=== PATIENT | male | born 1945 | race Caucasian/White ===

== ENCOUNTER 2017-01-09 18:47 | Emergency (ER) | payer MEDICARE, OTHER ==
[2017-01-09] MEDS ORDERED: HYDROmorphone 1 MG/ML Syringe IM ONE (19:18)
--- NOTE | 2017-01-09 19:50 | EDM.PDOC ---
ED HPI GENERAL MEDICAL PROBLEM - General Chief Complaint: Genitourinary Problem Stated Complaint: bloody urine Time Seen by Provider: 01/09/17 18:50 Source of Information: Reports: Patient ([id number]) History Limitations: Reports: No Limitations - History of Present Illness INITIAL COMMENTS - FREE TEXT/NARRATIVE: Patient is a 71-year-old seen in the emergency room with chief complaint of blood in urine patient had 2 bloody urinations and now states that he is unable to urinate. Has had in the past history of prostate hypertrophy but had been doing well til today Onset: Today, Sudden Duration: Hour(s):, Getting Worse Location: Reports: Pelvis Quality: Reports: Ache, Pressure Severity: Moderate Improves with: Reports: None Worsens with: Reports: None Context: Reports: Sick Contact Associated Symptoms: Reports: Weakness - Related Data Allergies Allergy/AdvReac Type Severity Reaction Status Date / Time Penicillins Allergy Airway Verified 01/09/17 18:49 Tightness tetanus and diphtheria Allergy Edema Verified 01/09/17 18:49 toxoids Home Meds: Home Meds Aspirin [Ecotrin] 325 mg PO DAILY 01/09/17 [History] Atenolol [Atenolol] 50 mg PO DAILY 01/09/17 [History] Fish Oil/DHA/EPA [Fish Oil 1,200 MG] 1 tab PO DAILY 01/09/17 [History] Flaxseed Oil [Flaxseed] 1,000 mg PO DAILY 01/09/17 [History] Lisinopril/Hydrochlorothiazide [Lisinopril-Hctz 20-25 mg Tab] 1 tab PO DAILY 02/13 [History] metFORMIN [Glucophage XR] 500 mg PO DAILY 01/09/17 [History] ED ROS GENERAL - Review of Systems Review Of Systems: See Below Constitutional: Reports: No Symptoms, Diaphoresis (Secondary to pain) HEENT: Reports: No Symptoms Respiratory: Reports: No Symptoms Cardiovascular: Reports: No Symptoms Endocrine: Reports: No Symptoms GI/Abdominal: Reports: Abdominal Pain (Lower abdomen) : Reports: Hematuria Musculoskeletal: Reports: No Symptoms Skin: Reports: No Symptoms Neurological: Reports: No Symptoms Psychiatric: Reports: No Symptoms ED EXAM, RENAL/ - Physical Exam Exam: See Below Exam Limited By: No Limitations General Appearance: Alert, WD/WN, No Apparent Distress Ears: Normal External Exam, Normal Canal, Hearing Grossly Normal, Normal TMs Nose: Normal Inspection, Normal Mucosa, No Blood Throat/Mouth: Normal Inspection, Normal Lips, Normal Teeth, Normal Gums, Normal Oropharynx, Normal Voice, No Airway Compromise Head: Atraumatic, Normocephalic Neck: Normal Inspection, Supple, Non-Tender, Full Range of Motion Respiratory/Chest: No Respiratory Distress, Lungs Clear, Normal Breath Sounds, No Accessory Muscle Use, Chest Non-Tender Cardiovascular: Normal Peripheral Pulses, Regular Rate, Rhythm, No Edema, No Gallop, No JVD, No Murmur, No Rub GI/Abdominal: Normal Bowel Sounds, Soft, Non-Tender, No Organomegaly, No Distention, No Abnormal Bruit, No Mass (Male) Exam: Deferred Rectal (Males) Exam: Normal Exam, Normal Rectal Tone, Prostate Normal Back Exam: Normal Inspection, Full Range of Motion, NT Extremities: Normal Inspection, Normal Range of Motion, Non-Tender, Normal Capillary Refill, No Pedal Edema Neurological: Alert, Oriented, CN II-XII Intact, Normal Cognition, Normal Gait, Normal Reflexes, No Motor/Sensory Deficits Course - Vital Signs Last Recorded V/S: Last Vital Signs Temp 98.5 F 01/09/17 21:45 Pulse 49 L 01/09/17 21:45 Resp 16 01/09/17 21:45 BP 154/84 H 01/09/17 21:45 Pulse Ox 94 L 01/09/17 21:45 - Orders/Labs/Meds Orders: Active Orders 24 hr Category Date Time Status Bladder Irrigation [RC] BID Care 01/09/17 22:40 Active Insert Tinsley Catheter [Insert Urinary Catheter] [OM.PC] Care 01/09/17 19:30 Ordered Q24H Urinary Catheter Assessment [RC] ASDIRECTED Care 01/09/17 19:20 Active Saline Lock Insert [OM.PC] Routine Oth 01/09/17 20:34 Ordered Labs: Laboratory Tests 01/09/17 01/09/17 Range/Units 19:10 19:10 WBC 11.5 H (4.0-10.2) K/uL RBC 4.65 (4.33-5.41) M/uL Hgb 14.6 (13.1-16.8) g/dL Hct 42.0 (39.0-49.0) % MCV 90.3 (84.0-98.0) fL MCH 31.4 (28.2-33.3) pg MCHC 34.8 (31.7-36.0) g/dL RDW 13.5 (11.2-14.1) % Plt Count 518 H (150-350) K/uL Neut % (Auto) 69.6 (45.0-80.0) % Lymph % (Auto) 17.5 (10.0-50.0) % [place] % (Auto) 8.9 (2.0-14.0) % Eos % (Auto) 3.6 (0.0-5.0) % Baso % (Auto) 0.4 (0.0-2.0) % Neut # (Auto) 8.01 H (1.40-7.00) K/uL Lymph # (Auto) 2.01 (0.50-3.50) K/uL [place] # (Auto) 1.02 H (0.00-1.00) K/uL Eos # (Auto) 0.41 (0.00-0.50) K/uL Baso # (Auto) 0.05 (0.00-0.20) K/uL Sodium 132 L (136-145) mmol/L Potassium 4.2 (3.5-5.1) mmol/L Chloride 98 (98-107) mmol/L Carbon Dioxide 23.8 (21.0-32.0) mmol/L BUN 21 H (7-18) mg/dL Creatinine 0.92 (0.51-1.17) mg/dL Est Cr Clr Drug Dosing 73.84 mL/min Estimated GFR (MDRD) > 60 mL/min Glucose 287 H* (74-106) mg/dL Calcium 9.0 (8.5-10.1) mg/dL Meds: Medications Discontinued Medications Generic Name Dose Route Start Last Admin Trade Name Freq PRN Reason Stop Dose Admin Hydromorphone HCl 1 mg 01/09/17 19:18 01/09/17 19:24 Dilaudid IM 01/09/17 19:19 1 mg ONETIME ONE Administration Hydromorphone HCl 1 mg 01/09/17 20:29 01/09/17 22:00 Dilaudid IVPUSH 1 mg Q1H PRN Administration Pain Hydromorphone HCl Confirm 01/09/17 20:29 01/09/17 23:43 Dilaudid Administered 01/09/17 20:30 Not Given Dose 1 mg .ROUTE .STK-MED ONE Sodium Chloride 1,000 mls @ 150 mls/hr 01/09/17 21:02 01/09/17 21:30 Normal Saline IV 01/10/17 03:41 150 mls/hr ONETIME ONE Administration Ondansetron HCl 4 mg 01/09/17 21:02 01/09/17 22:03 Zofran IVPUSH 4 mg Q6H PRN Administration Nausea/Vomiting Promethazine HCl 25 mg 01/09/17 21:14 01/09/17 21:30 Phenergan IM 25 mg Q6H PRN Administration Nausea Sodium Chloride 10 ml 01/09/17 20:34 Saline Flush FLUSH ASDIRECTED PRN Keep Vein Open Departure - Departure Time of Disposition: 21:34 Disposition: DC/Tfer to [facility] 02 Clinical Impression: Hematuria Qualifiers: Hematuria type: unspecified type Qualified Code(s): R31.9 - Hematuria, unspecified - Discharge Information Referrals: Sheila Streeter PA [Primary Care Provider] - Forms: ED Department Discharge Care Plan Goals: 3 way tinsley placed. Patient will be transferred to [facility] for higher level care. Internal Medicine accepted this patient. - Problem List & Annotations (1) Hematuria SNOMED Code(s): 39157857 Code(s): R31.9 - HEMATURIA, UNSPECIFIED Status: Acute Annotation/Comment: : Patient unable to void a 3 way Tinsley catheter was inserted and irrigated bladder untill clear will treat his pain nausea and vomiting discuss with urology and agreed with care Qualifiers: Hematuria type: unspecified type Qualified Code(s): R31.9 - Hematuria, unspecified - Problem List Review Problem List Initiated/Reviewed/Updated: Yes - My Orders Last 24 Hours: My Active Orders 01/09/17 19:20 Urinary Catheter Assessment [RC] ASDIRECTED 01/09/17 19:30 Insert Tinsley Catheter [Insert Urinary Catheter] [OM.PC] Q24H 01/09/17 20:34 Saline Lock Insert [OM.PC] Routine 01/09/17 22:40 Bladder Irrigation [RC] BID - Assessment/Plan Last 24 Hours: My Active Orders 01/09/17 19:20 Urinary Catheter Assessment [RC] ASDIRECTED 01/09/17 19:30 Insert Tinsley Catheter [Insert Urinary Catheter] [OM.PC] Q24H 01/09/17 20:34 Saline Lock Insert [OM.PC] Routine 01/09/17 22:40 Bladder Irrigation [RC] BID Plan: [facility] at [place] accepted the patient for transfer. 3 way tinsley placed ( changed 3 times) prior to transfer due to clotting.
[2017-01-09] MEDS ORDERED: HYDROmorphone 1 MG/ML Syringe ONE (20:29)
[2017-01-09] MEDS: HYDROmorphone 1 MG/ML Syringe IVPUSH PRN ×2 (20:30→22:00)
[2017-01-09] MEDS ORDERED: Sodium Chloride 0.9% 10 ML Syringe FLUSH PRN (20:34)
[2017-01-09] MEDS ORDERED: Ondansetron 4 MG/2 ML SDV IVPUSH PRN (21:02)
[2017-01-09] MEDS ORDERED: Sodium Chloride 0.9% 1,000 ML IV ONE (21:02)
[2017-01-09] MEDS ORDERED: Promethazine 25 MG/ML SDV IM PRN (21:14)
[2017-01-09 21:19] LABS: CHLORIDE,CL 98 mmol/L (98-107); SODIUM,NA 132 mmol/L (136-145)
== END 2017-01-09 22:40 ==
LOC: LL.ED 18:47
DX: R31.9 Hematuria, unspecified (principal); Z88.0 Allergy status to penicillin; Z88.8 Allergy status to other drugs, medicaments and biological substances; Z79.899 Other long term (current) drug therapy
CPT/HCPCS: 36415; 51702; 80048; 85025; 96361; 96372; 96374; 96375; 96376; 99285; J1170; J2405; J2550; J7030

== ENCOUNTER 2017-09-02 16:39 | Emergency (ER) | payer MEDICARE, OTHER ==
--- NOTE | 2017-09-02 17:04 | EDM.PDOC ---
ED HPI GENERAL MEDICAL PROBLEM - General Chief Complaint: Upper Extremity Injury/Pain Stated Complaint: left pointer finger swelling/pain Time Seen by Provider: 09/02/17 16:55 Source of Information: Reports: Patient, Family (), Old Records ([facility] chart/EMR) History Limitations: Reports: No Limitations - History of Present Illness INITIAL COMMENTS - FREE TEXT/NARRATIVE: Patient drove himself to the emergency room via private automobile for evaluation of a one-week history of 5/10 left finger pain with increasing redness but no history of injury, insect bite, drainage, foreign body, etc. He has not had problems with gout in the past. The patient denies any chest pain/ pressure, heart flutter, dizziness, orthostasis, orthopnea, diaphoresis, paresthesias, recent decreased exercise tolerance, or any other anginal-type symptoms. No recent history of abdominal pain, heartburn, nausea, diarrhea, melena, gross hematochezia, or any food intolerance, including fatty foods, etc.. The patient also denies any recent fever, cough, wheezing, dyspnea, etc.. Onset: Gradual Duration: Week(s): (One week as above) Location: Reports: Upper Extremity, Left. Denies: Head, Face, Neck, Chest, Abdomen, Back, Upper Extremity, Right, Radiates to Quality: Reports: Ache Severity: Moderate Improves with: Reports: Rest Worsens with: Reports: Movement Context: Denies: Trauma Associated Symptoms: Reports: No Other Symptoms. Denies: Confusion, Chest Pain , Cough, Diaphoresis, Fever/Chills, Headaches, Loss of Appetite, Malaise, Nausea /Vomiting, Shortness of Breath, Syncope, Weakness Treatments CELL BIOLOGIST: Reports: Other (see below) (None) left pointer finger Pain Score (Numeric/FACES): 5 - Related Data Allergies Allergy/AdvReac Type Severity Reaction Status Date / Time adhesive Allergy Rash Verified 09/02/17 16:42 Penicillins Allergy Airway Verified 01/09/17 18:49 Tightness Sulfa (Sulfonamide Allergy Hives Verified 09/02/17 16:42 Antibiotics) tetanus and diphtheria Allergy Edema Verified 01/09/17 18:49 toxoids Home Meds: Home Meds Aspirin [Ecotrin] 325 mg PO DAILY 01/09/17 [History] Atenolol 50 mg PO DAILY 01/09/17 [History] Lisinopril/Hydrochlorothiazide [Lisinopril-Hctz 20-25 mg Tab] 1 tab PO DAILY 02/13 [History] metFORMIN [Glucophage XR] 500 mg PO DAILY 01/09/17 [History] Clindamycin HCl 150 mg PO TIDMEALS #30 capsule 09/02/17 [Rx] Escitalopram [Lexapro] 10 mg PO DAILY 09/02/17 [History] Triamcinolone Acetonide [Triamcinolone Acetonide 0.1% Crm] 1 applic TOP BID PRN 09/02/17 [History] Past Medical History HEENT History: Reports: Cataract, Hard of Hearing, Impaired Vision, Other (See Below). Denies: Allergic Rhinitis, Glaucoma, Macular Degeneration, Retinal Detachment Other HEENT History: The patient wears glasses. No diabetic retinopathy. Mild bilateral presbycusis with no hearing aide therapy. Cardiovascular History: Reports: Heart Murmur, High Cholesterol, Hypertension. Denies: Aneurysm, Arrhythmia, Blood Clots/VTE/DVT, CAD, Heart Failure, OK, PVD, Syncope Other Cardiovascular History: Aortic valve stenosis by history with aortic valve stenosis and mitral valve insufficiency by clinical exam which are closely followed by his technical services manager. Hyperlipidemia currently not treated with medications. Respiratory History: Reports: COPD, Intubation, Previous. Denies: Asthma, Bronchitis, Recurrent, Intubation, Difficult, PE, Pneumonia, Recurrent, Pneumothorax, Pulmonary Fibrosis, Sleep Apnea Gastrointestinal History: Reports: GERD. Denies: Celiac Disease, Cholelithiasis , Chronic Constipation, Chronic Diarrhea, Colon Polyp, Diverticulosis, Fecal Incontinence, Gastritis, GI Bleed, Hepatitis, Inflammatory Bowel Disease, Irritable Bowel Syndrome, Jaundice, Pancreatitis, PUD Genitourinary History: Reports: BPH, Retention, Urinary, Other (See Below). Denies: Acute Renal Failure, Chronic Renal Insuffiency, Diabetic Nephropathy, Renal Calculus, STD, Urinary Incontinence Musculoskeletal History: Reports: Arthritis, Back Pain, Chronic, Fracture, Neck Pain, Chronic, Osteoarthritis, Other (See Below). Denies: Amputation, Fibromyalgia, Gout, Osteoporosis, RA, SLE Other Musculoskeletal History: Bilateral big toe fractures in the 1960s with no surgery required. Neurological History: Reports: CVA, TIA, Other (See Below). Denies: Alzheimers Disease, Cerebral Aneurysms, Concussion, Headaches, Chronic, Head Trauma, Migraines, MS, Neuropathy, Diabetic, Neuropathy, Peripheral, Parkinson's, Seizure Other Neuro History: Recurrent TIAs 2 between 1995 and 1996 with no residual defects. The patient denies previous CVA in 1995 despite our previous medical records. Psychiatric History: Reports: Anxiety, Depression. Denies: Abuse, Victim of, ADD, ADHD, Addiction, Psych Hospitalization(s), PTSD, Suicide Attempt, Suicidal Ideation Endocrine/Metabolic History: Reports: Diabetes, Type II, Other (See Below). Denies: Diabetes, Type I, Diabetes Mellitus, Type 3c, Hypothyroidism, IDDM, Obesity/BMI 30+ Other Endocrine/Metabolic History: Hyponatremia. Hematologic History: Reports: None. Denies: Anemia, Blood Transfusion(s), Iron Deficiency Immunologic History: Reports: None. Denies: AIDS, HIV, SLE Oncologic (Cancer) History: Reports: Bladder, Prostate, Other (See Below). Denies: Colon, Hodgkin's Lymphoma, Lymphoma, Malignant Melanoma, Non-Hodgkin's Lymphoma, Squamous Cell Carcinoma Other Oncologic History: Prostate cancer in 2006 requiring surgery as below. Unknown type of skin cancer with excision as below. Bladder bladder cancer excized in June 2017 as below. Dermatologic History: Reports: Eczema. Denies: Psoriasis - Infectious Disease History Infectious Disease History: Reports: Chicken Pox, Measles, Pertussis (Whooping Cough). Denies: C-Difficile, Meningitis, Mononucleosis, MRSA, Mumps, Rheumatic Fever, Rubella, Shingles, TB, VRE - Past Surgical History Head Surgeries/Procedures: Reports: None HEENT Surgical History: Reports: Cataract Surgery, Oral Surgery, Other (See Below). Denies: Adenoidectomy, Eye Surgery, Laser Surgery, LASIK, Myringotomy w Tube(s), Naso-Sinus Surgery, Tonsillectomy Other HEENT Surgeries/Procedures: Bilateral cataract surgery in 2005. Excision of one wisdom tooth in distant past. Cardiovascular Surgical History: Reports: None. Denies: Varicose Respiratory Surgical History: Reports: None. Denies: Thoracentesis GI Surgical History: Reports: None. Denies: Appendectomy, Cholecystectomy, Colonoscopy, EGD, Hernia, Abdominal, Hernia, Inguinal, Hernia Repair/Other Male Surgical History: Reports: Circumcision, Prostate Biopsy, Prostatectomy , TURBT-Transurethral Resection of Bladder Tumor, TURP-Transurethral Resection of Prostate, Other (See Below). Denies: Vasectomy Other Male Surgeries/Procedures: History of complete prostatectomy secondary to prostate cancer in 2006 with no chemotherapy, radiation therapy, etc.. Placement of suprapubic urinary catheter in December 2016 secondary to severe urinary retention with subsequent removal. TURBT of bladder cancer in June 2017. Circumcision as an infant. Endocrine Surgical History: Reports: None Neurological Surgical History: Reports: None. Denies: C-Spine, Discectomy, Laminectomy, Lumbar Spine, Sacral Spine, Spinal Fusion, Thoracic Spine, Vertebroplasty Musculoskeletal Surgical History: Reports: ORIF, Other (See Below). Denies: Arthroscopic Procedure, Carpal Tunnel, Ganglion Cyst, Joint Replacement, Shoulder Surgery Other Musculoskeletal Surgeries/Procedures:: Bilateral hallux valgus repair including pin placement in 2016. Oncologic Surgical History: Reports: None Dermatological Surgical History: Reports: Skin Biopsy, Other (See Below) Other Dermatological Surgeries/Procedures: Excision of unknown type of skin cancer from the left cheek in 2006. Social & Family History - Tobacco Use Smoking Status *Q: Current Every Day Smoker Tobacco Use Within Last Twelve Months: Cigarettes Years of Tobacco use: 58 Packs/Tins Daily: 1 Packs/Tins Daily Comment: Started smoking at age 13 with maximum use of 3 packs per day. Used Tobacco, but Quit: No Smoking Cessation Information Provided To Patient: Yes Second Hand Smoke Exposure: Yes Source of Second Hand Smoke Exposure: smokes Second Hand Smoke Education Provided: Yes - Caffeine Use Caffeine Use: Reports: Coffee (10 cups per day), Soda (2 sodas per day). Denies : Energy Drinks, Tea - Alcohol Use Alcohol Use History: Yes Days Per Week of Alcohol Use: 7 Number of Drinks Per Day: 4 Number of Drinks Per Day Comment: Usually beer. No previous DWIs, problems with alcohol abuse, etc. Total Drinks Per Week: 28 Alcohol Use in Last Twelve Months: Yes - Recreational Drug Use Recreational Drug Use: No Drug Use in Last 12 Months: No Recreational Drug Type: Denies: Amphetamines (Speed), Cocaine, Heroin, LSD (Acid ), Marijuana/Hashish, Methamphetamine, Morphine, Oxycodone - Living Situation & Occupation Living situation: Reports: , with Family () Occupation: Retired Review of Systems - Review of Systems Review Of Systems: ROS reveals no pertinent complaints other than HPI. ED EXAM, GENERAL - Physical Exam Exam: See Below Exam Limited By: No Limitations General Appearance: Alert, WD/WN, No Apparent Distress Head: Atraumatic, Normocephalic. No: Facial Swelling, Facial Tenderness, Sinus Tenderness Neck: Supple, Non-Tender, Full Range of Motion, Carotid Bruit (Mild to Moderate bilateral carotid bruits versus transmitted heart sounds). No: Lymphadenopathy (L), Lymphadenopathy (R), Thyromegaly Respiratory/Chest: No Respiratory Distress, Lungs Clear, Normal Breath Sounds, No Accessory Muscle Use, Chest Non-Tender. No: Pleural Rub, Retractions Cardiovascular: Normal Peripheral Pulses, No Edema, No Gallop, No JVD, No Rub, Bradycardia (Mild to moderate with regular rhythm), Systolic Murmur (12/6 JT of the aortic and mitral valves). No: Gallop/S3, Gallop/S4, Friction Rub GI/Abdominal: Normal Bowel Sounds, Soft, Non-Tender, No Organomegaly, No Distention, No Abnormal Bruit, No Mass. No: Pelvis Stable, Guarding (Male) Exam: Deferred Rectal (Males) Exam: Deferred Back Exam: Normal Inspection, Full Range of Motion. No: CVA Tenderness (L), CVA Tenderness (R), Muscle Spasm Extremities: Normal Range of Motion, No Pedal Edema, Normal Capillary Refill, Increased Warmth (Mild increased localized warmth with +1 erythema over the proximal portion of the middle phalanx of digit #2 of the left hand with no lymphangitis, drainage, etc. No evidence of foreign body). No: Joint Swelling, Branden's Sign Neurological: Alert, Oriented, CN II-XII Intact, Normal Cognition, Normal Gait, No Motor/Sensory Deficits Psychiatric: Normal Affect, Normal Mood Skin Exam: Erythema (As above). No: Diaphoretic, Lymphangitis, Wound/Incision Lymphatic: No Adenopathy Course - Vital Signs Last Recorded V/S: Last Vital Signs Temp 36.8 C 09/02/17 16:59 Pulse 52 L 09/02/17 16:59 Resp 18 09/02/17 16:59 BP 137/55 L 09/02/17 16:59 Pulse Ox 98 09/02/17 16:59 Vital Signs - 24 hr 09/02/17 16:59 Temperature [ 36.8 C Oral] Pulse, 52 L Peripheral [ Right Pulse Oximetry] Respiratory 18 Rate Blood Pressure 137/55 L [Right Upper Arm] O2 Sat by Pulse 98 Oximetry - Orders/Labs/Meds Orders: Active Orders 24 hr Category Date Time Status Obtain Past Medical Record [OM.PC] Routine Oth 09/02/17 17:03 Active Labs: Laboratory Tests 09/02/17 09/02/17 09/02/17 Range/Units 17:10 17:10 17:10 WBC 9.2 (4.0-10.2) K/uL RBC 5.00 (4.33-5.41) M/uL Hgb 15.5 (13.1-16.8) g/dL Hct 44.9 (39.0-49.0) % MCV 89.8 (84.0-98.0) fL MCH 31.0 (28.2-33.3) pg MCHC 34.5 (31.7-36.0) g/dL RDW 13.9 (11.2-14.1) % Plt Count 413 H D (150-350) K/uL Neut % (Auto) 69.1 (45.0-80.0) % Lymph % (Auto) 15.3 (10.0-50.0) % [place] % (Auto) 8.1 (2.0-14.0) % Eos % (Auto) 6.9 H (0.0-5.0) % Baso % (Auto) 0.6 (0.0-2.0) % Neut # (Auto) 6.38 (1.40-7.00) K/uL Lymph # (Auto) 1.41 (0.50-3.50) K/uL [place] # (Auto) 0.75 (0.00-1.00) K/uL Eos # (Auto) 0.64 H (0.00-0.50) K/uL Baso # (Auto) 0.06 (0.00-0.20) K/uL Sodium 134 L (136-145) mmol/L Potassium 4.5 (3.5-5.1) mmol/L Chloride 99 (98-107) mmol/L Carbon Dioxide 26.8 (21.0-32.0) mmol/L BUN 22 H (7-18) mg/dL Creatinine 1.10 (0.51-1.17) mg/dL Est Cr Clr Drug Dosing 61.76 mL/min Estimated GFR (MDRD) > 60 mL/min Glucose 241 H (74-106) mg/dL Lactic Acid (0.4-2.0) mmol/L Uric Acid 6.3 (2.6-7.2) mg/dL Calcium 9.3 (8.5-10.1) mg/dL Total Bilirubin 0.4 (0.2-1.0) mg/dL AST 12 L (15-37) U/L ALT 28 (12-78) U/L Alkaline Phosphatase 75 (46-116) IU/L Total Protein 7.2 (6.4-8.2) g/dL Albumin 3.4 (3.4-5.0) g/dL 09/02/17 Range/Units 17:10 WBC (4.0-10.2) K/uL RBC (4.33-5.41) M/uL Hgb (13.1-16.8) g/dL Hct (39.0-49.0) % MCV (84.0-98.0) fL MCH (28.2-33.3) pg MCHC (31.7-36.0) g/dL RDW (11.2-14.1) % Plt Count (150-350) K/uL Neut % (Auto) (45.0-80.0) % Lymph % (Auto) (10.0-50.0) % [place] % (Auto) (2.0-14.0) % Eos % (Auto) (0.0-5.0) % Baso % (Auto) (0.0-2.0) % Neut # (Auto) (1.40-7.00) K/uL Lymph # (Auto) (0.50-3.50) K/uL [place] # (Auto) (0.00-1.00) K/uL Eos # (Auto) (0.00-0.50) K/uL Baso # (Auto) (0.00-0.20) K/uL Sodium (136-145) mmol/L Potassium (3.5-5.1) mmol/L Chloride (98-107) mmol/L Carbon Dioxide (21.0-32.0) mmol/L BUN (7-18) mg/dL Creatinine (0.51-1.17) mg/dL Est Cr Clr Drug Dosing mL/min Estimated GFR (MDRD) mL/min Glucose (74-106) mg/dL Lactic Acid 1.4 (0.4-2.0) mmol/L Uric Acid (2.6-7.2) mg/dL Calcium (8.5-10.1) mg/dL Total Bilirubin (0.2-1.0) mg/dL AST (15-37) U/L ALT (12-78) U/L Alkaline Phosphatase (46-116) IU/L Total Protein (6.4-8.2) g/dL Albumin (3.4-5.0) g/dL Meds: Medications Discontinued Medications Generic Name Dose Route Start Last Admin Trade Name Freq PRN Reason Stop Dose Admin Clindamycin HCl 150 mg 09/02/17 18:02 09/02/17 18:23 Cleocin PO 09/02/17 18:03 150 mg ONETIME ONE Administration - Radiology Interpretation Free Text/Narrative:: None Departure - Departure Time of Disposition: 18:30 Disposition: Home, Self-Care 01 Condition: Good Clinical Impression: Heart murmur, Tobacco abuse counseling Cellulitis Qualifiers: Site of cellulitis: extremity Site of cellulitis of extremity: finger Laterality: left Qualified Code(s): L03.012 - Cellulitis of left finger Osteoarthritis Qualifiers: Osteoarthritis location: multiple joints Osteoarthritis type: primary Qualified Code(s): M15.0 - Primary generalized (osteo)arthritis Diabetes mellitus Qualifiers: Diabetes mellitus type: type 2 Diabetes mellitus emt intermediate insulin use: without emt intermediate use Diabetes mellitus complication status: without complication Qualified Code(s): E11.9 - Type 2 diabetes mellitus without complications COPD (chronic obstructive pulmonary disease) Qualifiers: COPD type: emphysema Emphysema type: panlobular Qualified Code(s): J43.1 - Panlobular emphysema Hypertension Qualifiers: Hypertension type: essential hypertension Qualified Code(s): I10 - Essential ( primary) hypertension Hyperlipidemia Qualifiers: Hyperlipidemia type: unspecified Qualified Code(s): E78.5 - Hyperlipidemia, unspecified - Discharge Information Prescriptions: Clindamycin HCl 150 mg PO TIDMEALS #30 capsule Instructions: Cellulitis, Adult, [id number] Referrals: Suzy Morillo PA-C [Primary Care Provider] - Forms: ED Department Discharge Additional Instructions: 1. Follow up with your regular provider in 10-14 days as needed, if symptoms persist. Bring these discharge instructions with you to that visit.. 2. Antibacterial soap wash/soak with subsequent antibacterial dressing such as Neosporin, etc. as directed 2 times per day until the wound site completely heals. Keep the area clean and dry with activity restrictions as discussed. 3. Tylenol 650 mg by mouth every 4 hours and/or OTC ibuprofen 2-3 tabs by mouth every 6 hours with food as directed./needed. 4. Stop all tobacco use MILAGROS as directed/per provided information and consider contacting [employer]uit LIne, etc.. 5. Immediately after this visit verify that your cellular telephone's voicemail has been activated and is empty. Also verify that your home telephone 's answering machine is operating properly and has space to receive messages. Note that it is sometimes necessary for us to be able to contact you at a later date to discuss your medical care. 6. Consider updating your preventative health care, including colonoscopy MILAGROS as discussed - Problem List & Annotations (1) Cellulitis SNOMED Code(s): 019681453 Code(s): L03.90 - CELLULITIS, UNSPECIFIED Status: Acute Priority: High Onset Date: ~08/26/17 Annotation/Comment:: Initial dose of clindamycin given in the emergency room. Wound care discussed. Follow-up with regular provider when necessary. Qualifiers: Site of cellulitis: extremity Site of cellulitis of extremity: finger Laterality: left Qualified Code(s): L03.012 - Cellulitis of left finger (2) COPD (chronic obstructive pulmonary disease) SNOMED Code(s): 83408845 Code(s): J44.9 - CHRONIC OBSTRUCTIVE PULMONARY DISEASE, UNSPECIFIED Status : Chronic Priority: Medium Annotation/Comment:: Stable by history with no recent fever or bronchitic type symptoms. No current medical therapy. Consider PFTs by his regular provider. Smoking cessation strongly encouraged as below. Qualifiers: COPD type: emphysema Emphysema type: panlobular Qualified Code(s): J43.1 - Panlobular emphysema (3) Diabetes mellitus SNOMED Code(s): 90671396 Code(s): E11.9 - TYPE 2 DIABETES MELLITUS WITHOUT COMPLICATIONS Status: Chronic Priority: Medium Annotation/Comment:: Elevated blood sugar today possibly secondary to current infection. Continue to observe closely by his regular provider. Qualifiers: Diabetes mellitus type: type 2 Diabetes mellitus emt intermediate insulin use: without [facility] use Diabetes mellitus complication status: without complication Qualified Code(s): E11.9 - Type 2 diabetes mellitus without complications (4) Heart murmur SNOMED Code(s): 48985214 Code(s): R01.1 - CARDIAC MURMUR, UNSPECIFIED Status: Chronic Priority: Medium Annotation/Comment:: Aortic valve stenosis and mitral valve insufficiency by clinical exam. Patient has a follow-up appointment scheduled with his technical services manager next week. No chest pain or anginal type symptoms. (5) Hyperlipidemia SNOMED Code(s): 45121070 Code(s): E78.5 - HYPERLIPIDEMIA, UNSPECIFIED Status: Chronic Priority: Medium Annotation/Comment:: Not currently under medical therapy. Strongly consider statin therapy especially in light of his diabetes, etc. Qualifiers: Hyperlipidemia type: unspecified Qualified Code(s): E78.5 - Hyperlipidemia , unspecified (6) Hypertension SNOMED Code(s): 80532271 Code(s): I10 - ESSENTIAL (PRIMARY) HYPERTENSION Status: Chronic Priority : Medium Annotation/Comment:: Under good control in the emergency room. She is already on an DEVIN inhibitor. Note bradycardia secondary to his atenolol. Continue to observe closely by his regular provider. Qualifiers: Hypertension type: essential hypertension Qualified Code(s): I10 - Essential (primary) hypertension (7) Osteoarthritis SNOMED Code(s): 832536093 Code(s): M19.90 - UNSPECIFIED OSTEOARTHRITIS, UNSPECIFIED SITE Status: Chronic Priority: Medium Annotation/Comment:: Stable by history with normal uric acid level today. Qualifiers: Osteoarthritis location: multiple joints Osteoarthritis type: primary Qualified Code(s): M15.0 - Primary generalized (osteo)arthritis (8) Tobacco abuse counseling SNOMED Code(s): 663522085, 997805954, 252391645 Code(s): Z71.6 - TOBACCO ABUSE COUNSELING Status: Chronic Priority: Medium Annotation/Comment:: Patient and his were strongly encouraged to discontinue smoking MILAGROS, although they were not very interested in doing this. - Problem List Review Problem List Initiated/Reviewed/Updated: Yes - My Orders Last 24 Hours: My Active Orders 09/02/17 17:03 Obtain Past Medical Record [OM.PC] Routine - Assessment/Plan Last 24 Hours: My Active Orders 09/02/17 17:03 Obtain Past Medical Record [OM.PC] Routine Assessment:: As above Plan: As above. Extensive precautions were given to the patient, who is in agreement with the treatment plan. See Patient Instructions for further treatment and plan.
[2017-09-02 17:34] LABS: CHLORIDE,CL 99 mmol/L (98-107); SODIUM,NA 134 mmol/L (136-145)
[2017-09-02] MEDS: Clindamycin HCl 150 MG Cap PO ONE (18:23)
== END 2017-09-02 18:30 | disposition home or self-care (01) ==
LOC: LL.ED 16:39
DX: L03.012 Cellulitis of left finger (principal); E78.00 Pure hypercholesterolemia, unspecified; I10 Essential (primary) hypertension; K21.9 Gastro-esophageal reflux disease without esophagitis; E11.9 Type 2 diabetes mellitus without complications; F17.210 Nicotine dependence, cigarettes, uncomplicated; M15.0 Primary generalized (osteo)arthritis; J43.1 Panlobular emphysema; E78.5 Hyperlipidemia, unspecified; Z91.048 Other nonmedicinal substance allergy status; Z88.0 Allergy status to penicillin; Z79.899 Other long term (current) drug therapy; Z79.82 Long term (current) use of aspirin; Z79.84 Long term (current) use of oral hypoglycemic drugs; Z88.2 Allergy status to sulfonamides; Z88.7 Allergy status to serum and vaccine; Z86.73 Personal history of transient ischemic attack (TIA), and cerebral infarction without residual deficits; Z71.6 Tobacco abuse counseling
CPT/HCPCS: 36415; 80053; 83605; 84550; 85025; 99284; A9270-GY

== ENCOUNTER 2018-10-26 11:31 | Day surgery (SDC) | payer MEDICARE, OTHER ==
--- OUTSIDE RECORDS SUMMARY | 2018-10-24 09:20 | XMSREPORT | Referral Summary ---
:1945 Author Organization [facility] Address [address] [place] [address] [address] [place] [address] Care Team Providers Name Role Phone Suzy Morillo PA-C Attributed Provider Reason for Referral Transitions of Care (Routine) Status Reason Specialty Diagnoses / Referred By Referred To Procedures Contact Contact New Request Patient Diagnoses Positive colorectal cancer screening using Cologuard test Suzy Morillo, Health , [facility] MADELEINE Rector, [address] [facility] [address] [place] [id number] Phone: Fax: Encounter Details Date Type Department Care Team Description 10/19/2018 Telephone [facility] Suzy Morillo PA-C CLINIC [address] [place] [address] [place] [address] Allergies Active Allergy Reactions Severity Noted Date Comments Povidone Iodine Rash High 03/18/2017 Latex Rash 05/22/2012 Penicillin Anaphylaxis (High) High 05/22/2012 Throat swelling shut / trouble breathing Sulfa Drugs Hives (High) High 01/13/2018 Tetanus Toxoids Other (Specify in 05/22/2012 Arm swelled up Comments) documented as of this encounter (statuses as of 10/19/2018) Medications Medication Sig Dispensed Refills Start Date End Date Status aspirin 325 mg tablet Take 325 mg by 0 Active mouth 1 time per day TRUEPLUS LANCETS 28G MISC Inject 1 Strip 100 each 3 11/26/2014 Active as directed 1 time per day. Test blood sugar once daily DX: E11.9 blood glucose test strip Test blood sugar 100 each 3 11/26/2014 Active (GLUCOCARD VITAL TEST) once daily DX: E11.9 mupirocin (BACTROBAN) 2 % [The details of 22 g 2 01/07/2016 Active ointmentIndications: the medication Basal cell carcinoma are not available because there are pending changes by a home health clinician.] clotrimazole [The details of 60 g 2 12/16/2016 Active (LOTRIMIN-AF) 1 % the medication creamIndications: are not Irritant dermatitis available because there are pending changes by a home health clinician.] ketoconazole (NIZORAL) 2 Apply 1 60 g 4 08/11/2018 Active % creamIndications: application to Intertrigo affected skin fold areas twice daily for 2-3 weeks, then discontinue use. Can repeat during flares. glipiZIDE (GLUCOTROL) 10 Take 1 tablet 90 tablet 0 09/28/2018 Active mg tabletIndications: (10 mg) by mouth Type 2 diabetes mellitus 1 time a day with microalbuminuria, with breakfast without long-term current use of insulin (HCC) atenolol (TENORMIN) 50 mg Take 1 tablet 90 tablet 3 09/28/2018 Active tabletIndications: (50 mg) by mouth Essential hypertension 1 time per day metFORMIN (GLUCOPHAGE) Take 1 tablet 90 tablet 0 09/28/2018 Active 850 MG tabletIndications: (850 mg) by Type 2 diabetes mellitus mouth 1 time per with microalbuminuria, day without long-term current use of insulin (HCC) lisinopril-hydroCHLOROthi Take 1 tablet by 90 tablet 0 09/28/2018 Active azide (PRINZIDE, mouth 1 time per ZESTORETIC) 20-25 mg day tabletIndications: Essential hypertension rosuvastatin (CRESTOR) 10 Take 0.5 tablets 90 tablet 0 09/28/2018 Active mg tabletIndications: (5 mg) by mouth 9 Pure hypercholesterolemia every night at bedtime for 7 days, THEN 1 tablet (10 mg) every night at bedtime. escitalopram (LEXAPRO) 10 Take 1 tablet 90 tablet 0 09/28/2018 Active mg tabletIndications: (10 mg) by mouth Anxiety and depression 1 time per day hydrOXYzine (ATARAX) 25 Take 1 tablet 30 tablet 0 09/28/2018 Active mg tabletIndications: (25 mg) by mouth Hives of unknown origin Every 12 hours as needed for itching triamcinolone acetonide APPLY TO 80 g 1 10/10/2018 Active (KENALOG,ARISTOCORT) 0.1 AFFECTED AREAS % creamIndications: TWICE A DAY Venous stasis dermatitis NEEDED FOR of both lower RASH,LIMIT TO extremities, Hives of LESS THAN 3 unknown origin WEEKS OF CONTINUOUS USE,AVOID USE ON FACE,UNDERARMS AND GROIN documented as of this encounter (statuses as of 10/19/2018) Active Problems Problem Noted Date Anxiety and depression 09/28/2018 Hives of unknown origin 09/28/2018 Nocturia 07/21/2018 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 Renal cyst 01/26/2017 Hematuria 01/10/2017 Urethral injury 01/10/2017 Aortic stenosis, mild 07/18/2015 Mild aortic regurgitation 07/18/2015 Pre-ulcerative corn or callous 05/29/2013 Personal history of malignant neoplasm of prostate 12/11/2007 Prostate cancer 02/28/2006 Essential hypertension 05/07/2002 Contact dermatitis and other eczema, due to unspecified cause Tobacco use disorder Obesity Pure hypercholesterolemia Type 2 diabetes mellitus without complication documented as of this encounter (statuses as of 10/19/2018) Social History Tobacco Use Types Packs/Day Years Used Date Current Every Day Smoker Cigarettes 1 Smokeless Tobacco: Never Used Alcohol Use Drinks/Week oz/Week Comments Yes 2-3 Cans of beer 1.2 - 1.8 beer Sex Assigned at Date Recorded Not on file Job Start Date Occupation Industry Not on file Not on file Not on file Travel History Travel Start Travel End No recent travel history available. documented as of this encounter Functional Status Functional Status Response Date of Assessment Is the person deaf or does he/she have serious difficulty No 03/16/2017 hearing? Is this person blind or does he/she have difficulty No 03/16/2017 seeing even when wearing glasses? Do you have difficulty with walking, balance, climbing No 03/18/2017 stairs, or had a fall in the last 3 months? Does the patient have difficulty dressing or bathing? No 03/16/2017 Because of a physical, mental, or emotional condition; No 03/16/2017 does this person have difficulty doing errands alone such as visiting a doctor's office or shopping? Cognitive Status Response Date of Assessment Because of a physical, mental, or emotional condition; No 03/16/2017 does this person have serious difficulty concentrating, remembering, or making decisions? documented as of this encounter Plan of Treatment Date Type Specialty Care Team Description 01/26/2019 Office Visit Urology Gil Perdue MD [address] [place] [address] [phone] 08/16/2019 Office Visit Dermatology Linda Menon PA [address] [address] [phone] Name Priority Associated Diagnoses Order Schedule CLINIC REFERRAL ENDOSCOPY Routine Positive colorectal cancer Ordered: 2018 NON ONE CHART screening using Cologuard test documented as of this encounter Goals Goal Patient Goal Associated Recent Patient-Stated? Author Type Problems Progress HGB A1C < Result Component 8.5 No Suzy Morillo 7.5 (09/26/2018 PMADELEINE 1:07 PM CDT) documented as of this encounter Implants Implanted Type Area Cloth Measurer Device Shelf Model / Identifier Expiration Serial / Date Lot Screw Antwan Slftp Hex Ti 2.7x16 N 402.816 Ea - [id number] Ortho Left: J&J DEPUY 402.816 / Implanted: Qty: 1 on 01/01/2015 by Adam Ivy DPM Other TOE SYNTHES / Screw Antwan Slftp Hex Ti 2.7x16 N 402.816 Ea - [id number] Ortho Right: J&J DEPUY 402.816 / Implanted: Qty: 1 on 01/01/2015 by Adam Ivy DPM Other TOE SYNTHES / Kwire Smth 054 4 N [id number] Ea - [id number] Ortho Left: KOMET [id number] / Implanted: Qty: 1 on 01/01/2015 by Adam Ivy DPM Other TOE / Kwire Smth 054 4 N [id number] Ea - [id number] Ortho Right: [address] 24-54 / Implanted: Qty: 1 on 01/01/2015 by Adam Ivy DPM Other TOE / Screw Antwan Slftp Hex Ti 2.7x12 N 402.812 Ea - [id number] Ortho Left: J&J DEPUY 402.812 / Implanted: Qty: 1 on 01/01/2015 by Adam Ivy DPM Other TOE SYNTHES / Screw Antwan Slftp Hex Ti 2.7x12 N 402.812 Ea - [id number] Ortho Right: J&J DEPUY 402.812 / Implanted: Qty: 1 on 01/01/2015 by Adam Ivy DPM Other TOE SYNTHES / Screw Antwan Slftp Hex Ti 2.7x12 N 402.812 Ea - [id number] Ortho Left: J&J DEPUY 402.812 / Implanted: Qty: 1 on 01/14/2016 by Adam Ivy DPM Other TOE SYNTHES / Kwire Dbl Troc Smth 0.054x4 N [id number] Ea - [id number] Ortho Left: [place] [id number] / Implanted: Qty: 1 on 01/14/2016 by Adam Ivy DPM Other TOE MEDICAL / Kwire Dbl Troc Smth 0.054x4 N [id number] Ea - [id number] Ortho Left: [place] [address]54 / Implanted: Qty: 1 on 01/14/2016 by Adam Ivy DPM Other TOE MEDICAL / Kwire Dbl Troc Smth 0.054x4 N [id number] Ea - [id number] Ortho Left: [place] [id number] / Implanted: Qty: 1 on 01/14/2016 by Adam Ivy DPM Other TOE MEDICAL / Screw Antwan Slftp Hex Ti 2.7x12 N 402.812 Ea - [id number] Ortho Left: J&J DEPUY 402.812 / Implanted: Qty: 1 on 01/14/2016 by Adam Ivy DPM Other TOE SYNTHES / documented as of this encounter Visit Diagnoses Diagnosis Positive colorectal cancer screening using Cologuard test - Primary documented in this encounter
[~2018-10-26 11:31] MED LIST: Propofol 200 MG/20 ML SDV ONE
[2018-10-26] MEDS ORDERED: Sodium Chloride 0.9% 10 ML Syringe FLUSH PRN (11:45)
[2018-10-26] MEDS: Lactated Ringers 1,000 ML IV SCH (12:21)
[2018-10-26] MEDS ORDERED: Propofol 200 MG/20 ML SDV ONE ×4 (12:31→13:52)
--- NOTE | 2018-10-26 12:33 | PCM.PN ---
- General Info Date of Service: 10/26/18 - Review of Systems Systems Review Comment:: 72-year-old male referred for his initial screening colonoscopy. He is medically stable to proceed today. His recent history and physical is reviewed and no significant changes are noted. I discussed the proposed colonoscopy with the patient. Risks such as but not limited to bleeding and GI injury reviewed. He agrees to proceed. - Patient Data Vitals - Most Recent: Last Vital Signs Temp 97.7 F 10/26/18 11:55 Pulse 91 10/26/18 11:55 Resp 20 10/26/18 11:55 BP 155/71 H 10/26/18 11:55 Pulse Ox 98 10/26/18 11:55 Weight - Most Recent: 101.605 kg Lab Results Last 24 Hours: Laboratory Results - last 24 hr 10/26/18 Range/Units 12:19 POC Glucose 208 H (65-110) mg/dl Med Orders - Current: Current Medications Lactated Ringer's (Ringers, Lactated) 1,000 mls @ 125 mls/hr IV ASDIRECTED DILLAN Last Admin: 10/26/18 12:21 Dose: 125 mls/hr Sodium Chloride (Saline Flush) 10 ml FLUSH ASDIRECTED PRN PRN Reason: Keep Vein Open Discontinued Medications Propofol (Diprivan 20 Ml) Confirm Administered Dose 200 mg .ROUTE .STK-MED ONE Stop: 10/26/18 08:34 - Problem List Review Problem List Initiated/Reviewed/Updated: Yes - My Orders Last 24 Hours: My Active Orders 10/26/18 11:45 Patient Status [ADT] Routine Blood Glucose Check, Bedside [RC] ONETIME Peripheral IV Care [RC] . DIRECTED Verify Patient Consent Obtain [RC] ASDIRECTED Lactated Ringers [Ringers, Lactated] 1,000 ml IV ASDIRECTED Sodium Chloride 0.9% [Saline Flush] 10 ml FLUSH ASDIRECTED PRN Peripheral IV Insertion Adult [OM.PC] Routine - Assessment Assessment:: colon cancer screening - Plan Plan:: colonoscopy
--- NOTE | 2018-10-26 13:52 | PCM.OPNOTE ---
- General Post-Op/Procedure Note Date of Surgery/Procedure: 10/26/18 Operative Procedure(s): Colonoscopy with Polypectomy Findings: Multiple large colon polyps Pre Op Diagnosis: Colon Cancer Screening Post-Op Diagnosis: Multiple Colon Polyps Anesthesia Technique: MAC Primary Surgeon: Preet Harris Pathology: Multiple colon polyps EBL in mLs: 0 Complications: None Condition: Good
--- NOTE | 2018-10-26 20:28 | OR ---
Date of Procedure: 10/26/2018 PREOPERATIVE DIAGNOSIS: Colon cancer screening. POSTOPERATIVE DIAGNOSIS: Multiple colon polyps. OPERATIONS PERFORMED: Colonoscopy with polypectomy. INDICATIONS FOR SURGERY: This 72-year-old male was referred for his initial colon cancer screening colonoscopy. FINDINGS: Multiple polyps were noted on today's exam. The polyps visualized vary in size from 5 mm to 3 cm. Several polyps are large, some are sessile in configuration, and some pedunculated. Polyps were removed from multiple areas in the colon. In the mid transverse colon, a large polyp was noted with a wide base attachment to the colon wall. It was felt that using standard snare technique would have significant risk for colon perforation, so it was felt that removal of this polyp would be best performed by a director outcomes using advanced polypectomy techniques. There was another smaller pedunculated polyp near this area which was also left in place. Additional small polyps were noted during the exam, but because of the multiple large polyps, some of the small polyps were not removed during this exam. The polyps removed today were from the rectum, in 4 locations in the sigmoid colon, the 15, 18, 25, and 30 cm levels, at the hepatic flexure and the transverse colon and at the splenic flexure. The largest polyps were in the Sigmoid and hepatic flexure regions.Other than the colon polyps, the colon appeared normal. DESCRIPTION OF PROCEDURE: The patient was taken to the operating room. He was given intravenous sedation, and with him in the left lateral decubitus position, digital rectal exam was performed showing no rectal masses. The Olympus colonoscope was inserted into the rectum and retroflexed examination of the rectal canal was performed. The scope was then carefully advanced under direct visualization into the colon. During insertion of the scope, multiple polyps were identified. As these polyps were seen, they were removed with a cautery snare and retrieved. The majority of the polyps was able to be suctioned into the polyp trap, but some of the larger polyps had to be held on the end of the scope with suction and retrieved by withdrawing the scope and the polyp. With careful advancement of the scope and with the assistance of hand pressure, the cecum was able to be reached. After examining the cecum, the scope was slowly withdrawn, and during withdrawal of the scope, additional polyps were seen and removed as they were encountered. In the transverse colon, a larger broad-based polyp was identified. There was a sister polyp adjacent to this also of significant size. Both of these polyps were left in place in anticipation of a future colonoscopy, whereby these could be removed using perhaps a saline lift technique. The examination is continued, and once completed, the scope was removed. There was no evidence of any complication during the procedure. Estimated blood loss was 0, and the patient was stable and tolerated the procedure well. He was taken from the operating room in satisfactory condition. COMMENT: The results of the colonoscopy and pathology reports will be reviewed with the patient. It is anticipated that he will be scheduled for another colonoscopy in 2-3 months by a director outcomes for removal of remaining polyps. PONCHO Harris MD /[id number]
== END 2018-10-26 14:57 | disposition home or self-care (01) ==
LOC: LL.SDS 11:31
PROVIDERS: ATTEND Surgery
DX: Z12.11 Encounter for screening for malignant neoplasm of colon (principal); D12.3 Benign neoplasm of transverse colon; D12.5 Benign neoplasm of sigmoid colon; K63.5 Polyp of colon; K62.1 Rectal polyp; I10 Essential (primary) hypertension; E11.9 Type 2 diabetes mellitus without complications; E66.9 Obesity, unspecified; E78.00 Pure hypercholesterolemia, unspecified; J44.9 Chronic obstructive pulmonary disease, unspecified; F41.9 Anxiety disorder, unspecified; F32.9 Major depressive disorder, single episode, unspecified; F17.210 Nicotine dependence, cigarettes, uncomplicated; Z88.0 Allergy status to penicillin; Z88.2 Allergy status to sulfonamides; Z88.3 Allergy status to other anti-infective agents; Z88.7 Allergy status to serum and vaccine; Z91.040 Latex allergy status; Z68.32 Body mass index [BMI] 32.0-32.9, adult; Z79.84 Long term (current) use of oral hypoglycemic drugs; Z79.82 Long term (current) use of aspirin; Z79.899 Other long term (current) drug therapy
CPT/HCPCS: 45385; 82962; J2704; J7120; 00812

== ENCOUNTER 2020-08-31 07:40 | Emergency (ER) | payer MEDICARE, OTHER ==
[2020-08-31] MEDS ORDERED: Orphenadrine 100 MG Tab.ER PO STA (08:09)
[2020-08-31] MEDS ORDERED: Bupivacaine 0.5% 10 ML SDV INJECT ONE (08:14)
[2020-08-31] MEDS ORDERED: methylPREDNISolone Acetate 40 MG/ML SDV IM ONE (08:14)
--- NOTE | 2020-08-31 09:04 | EDM.PDOC ---
ED HPI GENERAL MEDICAL PROBLEM - General Chief Complaint: Lower Extremity Injury/Pain Stated Complaint: left hip pain Time Seen by Provider: 08/31/20 08:10 Source of Information: Reports: Patient History Limitations: Reports: No Limitations - History of Present Illness INITIAL COMMENTS - FREE TEXT/NARRATIVE: Patient comes emergency department today from home with complaints of worsening left lateral hip pain and left lower back pain. This patient about a year ago struggled with greater trochanter bursitis as well as osteoarthritis of the hip. He was receiving pain injections by the [facility] in [place]. Over the last week he has had recurrence of the same symptomology that he had about a year ago. He has pain on the very lateral aspect of his left hip as well as into his very low buttocks on the left. He has no paresthesias of his lower extremity. No loss of bowel or bladder. He has had no recent falls trauma or injury. He has been taking Aleve with minimal improvement. He did try to get into the pain clinic although they are not available to see him immediately. 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 Other Treatments FLATBED OWNER OPERATOR: Patient has been using aleve 2 tabs po BID Left Hip Pain Score (Numeric/FACES): 10 - Related Data Allergies Allergy/AdvReac Type Severity Reaction Status Date / Time adhesive Allergy Rash Verified 08/31/20 07:42 iodine Allergy Rash Verified 08/31/20 07:42 latex Allergy Rash Verified 08/31/20 07:42 Penicillins Allergy Airway Verified 08/31/20 07:42 Tightness Sulfa (Sulfonamide Allergy Hives Verified 08/31/20 07:42 Antibiotics) tetanus and diphtheria Allergy Edema Verified 08/31/20 07:42 toxoids Home Meds: Home Meds Aspirin [Ecotrin] 325 mg PO DAILY 01/09/17 [History] Lisinopril/Hydrochlorothiazide [Lisinopril-Hctz 20-25 mg Tab] 1 tab PO DAILY 01/09/17 [History] atenoloL [Atenolol] 50 mg PO DAILY 01/09/17 [History] Escitalopram [Lexapro] 10 mg PO DAILY 09/02/17 [History] Triamcinolone Acetonide [Triamcinolone Acetonide 0.1% Crm] 1 applic TOP BID PRN 09/02/17 [History] Ketoconazole [Nizoral 2% Crm] 1 dose TOP BID PRN 10/25/18 [History] glipiZIDE [Glucotrol] 10 mg PO DAILY 10/25/18 [History] metFORMIN HCl [Metformin HCl] 850 mg PO DAILY@1300 10/25/18 [History] Clotrimazole [Lotrimin AF 1% Crm] 1 applic TOP BID PRN 10/26/18 [History] hydrOXYzine HCL [Atarax] 10 mg PO TID PRN 04/16/19 [History] Past Medical History HEENT History: Reports: Cataract, Hard of Hearing, Impaired Vision, Other (See Below) Other HEENT History: The patient wears glasses. No diabetic retinopathy. Mild bilateral presbycusis with no hearing aide therapy. Cardiovascular History: Reports: Heart Murmur, High Cholesterol, Hypertension Other Cardiovascular History: Aortic valve stenosis by history with aortic valve stenosis and mitral valve insufficiency by clinical exam which are closely followed by his shipping receiving manager. Hyperlipidemia currently not treated with medications. Respiratory History: Reports: COPD, Intubation, Previous Other Respiratory History: smoker Gastrointestinal History: Reports: GERD Genitourinary History: Reports: BPH, Retention, Urinary, Other (See Below) Other Genitourinary History: prostate surgery. nocturia. renal cyst. urethral injury Musculoskeletal History: Reports: Arthritis, Fracture, Osteoarthritis, Other (See Below) Other Musculoskeletal History: Bilateral big toe fractures in the with no surgery required. Bilateral bunionectomy 12/2014. Bilateral 2nd hammertoe repair 12/2014. Left 3rd and 4th metatarsal cary osteotmy, Left 3rd and 4th hammertoe repair 12/2015. Neurological History: Reports: CVA, TIA, Other (See Below) Other Neuro History: Recurrent TIAs 2 between 1995 and 1996 with no residual defects. The patient denies previous CVA in 1995 despite our previous medical records. Memory changes with MMSE borderline. Psychiatric History: Reports: Anxiety, Depression Endocrine/Metabolic History: Reports: Diabetes, Type II, Obesity/BMI 30+, Other (See Below) Other Endocrine/Metabolic History: Hyponatremia. Microalbuminuria. Hematologic History: Reports: None Immunologic History: Reports: None Oncologic (Cancer) History: Reports: Bladder, Prostate, Other (See Below) Other Oncologic History: Prostate cancer in 2006 requiring surgery as below. Unknown type of skin cancer with excision as below. Bladder bladder cancer excized in June 2017 as below. Dermatologic History: Reports: Eczema, Urticaria, Other (See Below) Other Dermatologic History: idiopathic pruritis/ hives. Pre-ulcerative corn or callous - Infectious Disease History Infectious Disease History: Reports: Chicken Pox, Measles, Pertussis (Whooping Cough) - Past Surgical History Head Surgeries/Procedures: Reports: None HEENT Surgical History: Reports: Cataract Surgery, Oral Surgery, Other (See Below) Other HEENT Surgeries/Procedures: Bilateral cataract surgery in 2005. Excision of one wisdom tooth in distant past. Cardiovascular Surgical History: Reports: None Respiratory Surgical History: Reports: None GI Surgical History: Reports: Colonoscopy Male Surgical History: Reports: Circumcision, Prostate Biopsy, Prostatectomy, TURBT-Transurethral Resection of Bladder Tumor, TURP-Transurethral Resection of Prostate, Other (See Below) Other Male Surgeries/Procedures: History of complete prostatectomy secondary to prostate cancer in 2006 with no chemotherapy, radiation therapy, etc.. Placement of suprapubic urinary catheter in December 2016 secondary to severe urinary retention with subsequent removal. TURBT of bladder cancer in June 2017. Circumcision as an . Endocrine Surgical History: Reports: None Neurological Surgical History: Reports: None Musculoskeletal Surgical History: Reports: ORIF, Other (See Below) Other Musculoskeletal Surgeries/Procedures:: Bilateral hallux valgus repair including pin placement in 2015. Oncologic Surgical History: Reports: None Dermatological Surgical History: Reports: Skin Biopsy Social & Family History - Family History Cardiac: Reports: CAD, Hypertension, [place] Other Cardiac Family History: F-CAD,[place]. M-HTN Musculoskeletal: Reports: RA Other Musculoskeletal Family History: S Neurological: Reports: CVA Other Neurological Family History: M Endocrine/Metabolic: Reports: Diabetes, type II Other Endocrine/Metabolic Family History: S Oncologic: Reports: Breast, Lung, Skin, Other (See Below) Other Oncologic Family History: B- lung, stomach. S-Breast. 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 This does require significant amounts of standing.) Review of Systems - Review of Systems Review Of Systems: Comprehensive ROS is negative, except as noted in HPI. ED EXAM, GENERAL - Physical Exam Exam: See Below Exam Limited By: No Limitations General Appearance: Alert, WD/WN, No Apparent Distress Respiratory/Chest: No Respiratory Distress Cardiovascular: Normal Peripheral Pulses Peripheral Pulses: 2+: Radial (L), Radial (R), Posterior Tibial (L), Posterior Tibial (R), Dorsalis Pedis (L), Dorsalis Pedis (R) GI/Abdominal: Normal Bowel Sounds, Soft (Male) Exam: Deferred Rectal (Males) Exam: Deferred Back Exam: Normal Inspection, Full Range of Motion, Decreased Range of Motion. No: CVA Tenderness (L), CVA Tenderness (R), Paraspinal Tenderness, Vertebral Tenderness Extremities: No Pedal Edema, Normal Capillary Refill. No: Normal Inspection (He is able to flex and extend and abduct and adduct bilaterally of the left and right hip. Lower extremities are unremarkable. He does have tenderness over the greater trochanter of the left lateral hip. Negative straight leg raise bilaterally.) Neurological: Alert, Oriented, Normal Cognition, No Motor/Sensory Deficits, Other (DTRs at the patella and post tibialis are 2+ equal bilaterally) Psychiatric: Normal Affect, Normal Mood Skin Exam: Warm, Dry, Intact, Normal Color Lymphatic: No Adenopathy Course - Vital Signs Last Recorded V/S: Last Vital Signs Temp 96.0 F L 08/31/20 08:09 Pulse 64 08/31/20 08:09 Resp 20 08/31/20 08:09 BP 169/94 H 08/31/20 08:09 Pulse Ox 99 08/31/20 08:09 - Orders/Labs/Meds Orders: Active Orders 24 hr Category Date Time Status Hip Min 2V or 3V w Pelvis Lt [CR] Stat Exams 08/31/20 08:03 Taken Meds: Medications Discontinued Medications Generic Name Dose Route Start Last Admin Trade Name Freq PRN Reason Stop Dose Admin Bupivacaine HCl 10 ml 08/31/20 08:14 08/31/20 08:27 Bupivacaine 0.5% 10 Ml Sdv INJECT 08/31/20 08:15 10 ml ONETIME ONE Administration Lidocaine HCl 5 ml 08/31/20 08:14 08/31/20 08:28 Lidocaine 1% 5 Ml Sdv INJECT 08/31/20 08:15 5 ml ONETIME ONE Administration Methylprednisolone Acetate 40 mg 08/31/20 08:14 08/31/20 08:27 Methylprednisolone Acetate 40 Mg/Ml Sdv IM 08/31/20 08:15 40 mg ONETIME ONE Administration Orphenadrine Citrate 100 mg 08/31/20 08:09 08/31/20 08:28 Orphenadrine 100 Mg Tab.Er PO 08/31/20 08:10 100 mg NOW STA Administration - Radiology Interpretation Free Text/Narrative:: X-ray of the left hip and pelvis initially reviewed extemporaneously by myself. Surprisingly it shows little to no degenerative changes of the bilateral hip joints. I do not see any more osteoarthritis in the left than the right. There is quite a bit of surgical clips in the lower pelvis. I do not see any fracture subluxation dislocation radiological review to follow. X-ray of the left hip to include pelvis per radiology show hip joints appear symmetric minimal degenerative changes. Mild degenerative lower lumbar spine bilateral sacroiliac joints surgical clips within the deep pelvis. Vascular calcifications iliac and femoral arteries. Dedicated view of the left hip shows no fracture or malalignment - Re-Assessments/Exams Free Text/Narrative Re-Assessment/Exam: Patient initially was given 100 mg of Norflex orally. X-ray of the left hip and pelvis were ordered. I discussed with the patient the possibility of an injection at the site of the greater trochanter for greater trochanter bursitis. He has had this in the past and would like to proceed. Risk and benefits were explained to the patient. His questions were answered and he was comfortable with this plan. Lidocaine 1% without epinephrine 2.5 mils bupivacaine 0.5% without epinephrine 2.5 mils and 40 mg of methylprednisolone acetate were prepared. Patient was on his right side-lying with his left hip up. Site of greatest tenderness over the greater trochanter was identified. The skin was cleansed with chlorhexidine and allowed to dry the appropriate time period. I then injected a 27-gauge needle down to the periosteum withdrew without any blood return. I then fanned out the above mixture withdrawing prior to each injection. He tolerated the procedure well. There was no bleeding. The patient was starting to have a little bit of pain relief from the injection. I discussed with him the importance of physical therapy for this as well. Although he is reluctant to do this as he cannot afford it and he does not feel it does much for him. We will use some Flexeril and tramadol over the next couple of days. Has had good relief with the pain clinic in the past I think that is appropriate for him to see him next available. Discharge directions as below are explained to the patient he was comfortable with this plan and his questions were answered. Departure - Departure Time of Disposition: 09:16 Disposition: Home, Self-Care 01 Clinical Impression: Greater trochanteric bursitis of left hip - Discharge Information Instructions: Cyclobenzaprine tablets, Hip Bursitis, [id number], Tramadol tablets, Pain Medicine Instructions, [id number], Orphenadrine tablets Referrals: Suzy Morillo PA-C [Primary Care Provider] - Forms: ED Department Discharge, ED Return to Work/School Form Additional Instructions: Continue with the Aleve to help treat the inflammation. Reduce your physical activity. Minimize stair climbing, walking up hills. Warner id hip abduction across the midline which means do not cross your legs. Sit with hips position higher than knees avoid crossing legs while sitting. Stand with equal weightbearing through lower limbs avoid side-lying to reduce compressive tendon load or pressure on that hip. Heat or ice to the area which ever works best for you. Contact physical therapy on tuesday for self referral for your hip pain. If pain not controlled with above. Tramadol 1 tablet three times a day as needed for pain. Starter pack from the ED given. Cyclobenzaprine 1 tablet three times a day as needed for pain or stiffness. Starter pack from the ED given. Return to the ED if new or worsening symptoms. Follow up with PCP in 1 week if not improving. Sepsis Event Note (ED) - Evaluation Sepsis Screening Result: No Definite Risk - Focused Exam Vital Signs: Vital Signs Temp Pulse Resp BP Pulse Ox 08/31/20 08:09 96.0 F L 64 20 169/94 H 99 - My Orders Last 24 Hours: My Active Orders 08/31/20 08:03 Hip Min 2V or 3V w Pelvis Lt [CR] Stat - Assessment/Plan Last 24 Hours: My Active Orders 08/31/20 08:03 Hip Min 2V or 3V w Pelvis Lt [CR] Stat
== END 2020-08-31 09:40 | disposition home or self-care (01) ==
LOC: LL.ED 07:40
DX: M70.62 Trochanteric bursitis, left hip (principal); E78.00 Pure hypercholesterolemia, unspecified; I10 Essential (primary) hypertension; J44.9 Chronic obstructive pulmonary disease, unspecified; Z91.040 Latex allergy status; Z88.8 Allergy status to other drugs, medicaments and biological substances; Z88.0 Allergy status to penicillin; Z88.2 Allergy status to sulfonamides; Z79.82 Long term (current) use of aspirin; Z79.899 Other long term (current) drug therapy
CPT/HCPCS: 96372; 99283-25; 99284; A9270-GY; J1030; J3490

== ENCOUNTER 2021-04-27 14:22 | Emergency (ER) | payer MEDICARE, OTHER ==
[2021-04-27] MEDS ORDERED: Sodium Chloride 0.9% 10 ML Syringe FLUSH PRN (14:35)
[2021-04-27] MEDS: Sodium Chloride 0.9% 1,000 ML IV SCH (14:56)
[2021-04-27] MEDS: Lactated Ringers 1,000 ML IV ONE (14:57)
[2021-04-27 15:14] LABS: CHLORIDE,CL 95 mmol/L (98-107); SODIUM,NA 131 mmol/L (136-145)
[2021-04-27 15:15] LABS: ANION GAP 16.5 meq/L (7-15)
[2021-04-27] MEDS: Polyethylene Glycol 3350 Powder 17 GM Packet PO ONE (16:00)
[2021-04-27] MEDS: Lactulose Soln 10 GM/15 ML 30 ML UD Cup PO ONE (17:36)
== END 2021-04-27 17:40 | disposition home or self-care (01) ==
LOC: LL.ED 14:22
DX: K59.00 Constipation, unspecified (principal); E78.00 Pure hypercholesterolemia, unspecified; I10 Essential (primary) hypertension; J44.9 Chronic obstructive pulmonary disease, unspecified; K21.9 Gastro-esophageal reflux disease without esophagitis; N40.0 Benign prostatic hyperplasia without lower urinary tract symptoms; Z86.73 Personal history of transient ischemic attack (TIA), and cerebral infarction without residual deficits; Z91.040 Latex allergy status; Z91.048 Other nonmedicinal substance allergy status; Z88.0 Allergy status to penicillin; Z91.041 Radiographic dye allergy status; Z88.2 Allergy status to sulfonamides; Z79.82 Long term (current) use of aspirin; Z79.899 Other long term (current) drug therapy
CPT/HCPCS: 36415; 74019; 80053; 83605; 83690; 83735; 85025; 86140; 99284; 99284-25; A9270-GY; J7030

== ENCOUNTER 2021-05-28 09:17 | Day surgery (SDC) | payer MEDICARE, OTHER ==
[~2021-05-28 09:17] MED LIST changes: +Lactated Ringers 1,000 ML IV SCH; +Midazolam 1 MG/ML 2 ML SDV ONE; +Sodium Chloride 0.9% 10 ML Syringe FLUSH PRN
[2021-05-28] MEDS ORDERED: Propofol 200 MG/20 ML SDV ONE ×2 (10:33→11:32)
[2021-05-28] MEDS ORDERED: Midazolam 1 MG/ML 2 ML SDV ONE (10:33)
== END 2021-05-28 12:20 | disposition home or self-care (01) ==
LOC: LL.SDS 09:17
PROVIDERS: ATTEND Surgery
DX: Z12.11 Encounter for screening for malignant neoplasm of colon (principal); K63.5 Polyp of colon; I10 Essential (primary) hypertension; E78.2 Mixed hyperlipidemia; E11.9 Type 2 diabetes mellitus without complications; L50.8 Other urticaria; E66.9 Obesity, unspecified; F17.210 Nicotine dependence, cigarettes, uncomplicated; E78.00 Pure hypercholesterolemia, unspecified; Z88.0 Allergy status to penicillin; Z88.2 Allergy status to sulfonamides; Z91.041 Radiographic dye allergy status; Z91.048 Other nonmedicinal substance allergy status; Z88.8 Allergy status to other drugs, medicaments and biological substances; Z88.7 Allergy status to serum and vaccine; Z23 Encounter for immunization; Z68.31 Body mass index [BMI] 31.0-31.9, adult; Z86.73 Personal history of transient ischemic attack (TIA), and cerebral infarction without residual deficits; Z79.84 Long term (current) use of oral hypoglycemic drugs; Z79.899 Other long term (current) drug therapy
CPT/HCPCS: 00812; 82947; J2250; J2704; J7120

== ENCOUNTER 2023-02-23 14:39 | Emergency (ER) | payer MEDICARE, OTHER | END 2023-02-23 17:42 | disposition home or self-care (01) | LOC: LL.ED 14:39 | DX: S42.412A Displaced simple supracondylar fracture without intercondylar fracture of left humerus, initial encounter for closed fracture (principal); I10 Essential (primary) hypertension; J44.9 Chronic obstructive pulmonary disease, unspecified; M19.90 Unspecified osteoarthritis, unspecified site; E11.9 Type 2 diabetes mellitus without complications; E66.9 Obesity, unspecified; Z68.31 Body mass index [BMI] 31.0-31.9, adult; Z91.048 Other nonmedicinal substance allergy status; Z91.041 Radiographic dye allergy status; Z91.040 Latex allergy status; Z88.0 Allergy status to penicillin; Z88.8 Allergy status to other drugs, medicaments and biological substances; Z88.2 Allergy status to sulfonamides; Z88.7 Allergy status to serum and vaccine; Z79.82 Long term (current) use of aspirin; Z79.899 Other long term (current) drug therapy; W10.9XXA Fall (on) (from) unspecified stairs and steps, initial encounter | CPT/HCPCS: 29105; 73060-LT; 73070-LT; 99283 ==

== ENCOUNTER 2023-03-06 17:08 | Emergency (ER) | payer MEDICARE, OTHER | END 2023-03-06 18:05 | disposition home or self-care (01) | LOC: LL.ED 17:08 | DX: R60.0 Localized edema (principal); I10 Essential (primary) hypertension; J44.9 Chronic obstructive pulmonary disease, unspecified; E11.9 Type 2 diabetes mellitus without complications; F17.210 Nicotine dependence, cigarettes, uncomplicated; Z91.040 Latex allergy status; Z88.0 Allergy status to penicillin; Z91.041 Radiographic dye allergy status; Z88.2 Allergy status to sulfonamides; Z88.7 Allergy status to serum and vaccine; Z91.048 Other nonmedicinal substance allergy status; Z79.82 Long term (current) use of aspirin; Z79.899 Other long term (current) drug therapy; Z79.84 Long term (current) use of oral hypoglycemic drugs | CPT/HCPCS: 99283; 99284 ==